=== PATIENT | female | born 1990 | race Caucasian/White ===

== ENCOUNTER 2020-06-19 08:00 | Outpatient (CLI) | payer OTHER ==
[2020-06-19 16:25] LABS: MUDS CUTOFF CONCENTRATIONS CUTOFF CONC BELOW:
[2020-06-19 16:29] LABS: BILIRUBIN,URINE NEGATIVE (NEGATIVE); GLUCOSE, URINE (UA) NEGATIVE (NEGATIVE); KETONES,URINE (UA) NEGATIVE (NEGATIVE); LEUKOCYTE ESTERASE, URINE NEGATIVE (NEGATIVE); NITRITE,URINE NEGATIVE (NEGATIVE); OCCULT BLOOD,URINE NEGATIVE (NEGATIVE); PROTEIN,URINE NEGATIVE (NEGATIVE); UROBILINOGEN,URINE 0.2 (NORMAL) E.U./dL (NORMAL)
[2020-06-19 16:42] LABS: BACTERIA,URINE Few /HPF (None Seen); CLARITY,URINE CLOUDY (CLEAR); RBC,URINE None Seen /HPF (0-5); SQUAMOUS EPITHELIAL CELL,UR FEW Squamous (<= Few)
[2020-06-19 17:07] LABS: AMPHETAMINE SCREEN,URINE NEGATIVE (NEGATIVE); BENZODIAZEPINES SCREEN, URINE NEGATIVE (NEGATIVE); COCAINE SCREEN URINE NEGATIVE (NEGATIVE); METHADONE SCREEN, URINE NEGATIVE (NEGATIVE); METHAMPHETAMINES SCREEN, URINE NEGATIVE (NEGATIVE); OPIATE SCREEN, URINE NEGATIVE (NEGATIVE); OXYCODONE SCREEN, URINE NEGATIVE (NEGATIVE); PROPOXYPHENE SCREEN, URINE NEGATIVE (NEGATIVE); TRICYCLIC ANTIDEPRESSANT,URINE NEGATIVE (NEGATIVE)
== END 2020-06-19 23:59 | disposition home or self-care (01) ==
LOC: LAB.R 08:00
PROVIDERS: ATTEND Advanced Practice Midwife
DX: Z34.90 Encounter for supervision of normal pregnancy, unspecified, unspecified trimester (principal)
CPT/HCPCS: 80306; 81001; 87086

== ENCOUNTER 2020-07-03 15:12 | Outpatient (CLI) | payer OTHER ==
--- NOTE | 2020-07-03 16:39 | Ultrasound Report ---
PROCEDURE: OB First Trimester INDICATIONS: SUPERV OF NL PREG OUTSIDE/PRIOR DATING DATA: Last menstrual period (LMP): 05/05/2020. LMP-based estimated date of delivery (GLORIA): 02/09/2021. First dating scan (date and location): 07/03/2020. Estimated date of delivery (GLORIA) from first dating scan: 02/06/2021. TECHNIQUE: Real-time scanning was performed of the fetus and maternal pelvic organs, with image documentation. COMPARISON: None FINDINGS: Embryo: Single live intrauterine is identified with crown-rump length measuring 2.2 cm cor responding to 8 weeks 6 days. heart rate is identified at 170 bpm. Measurement variability in dating: +/- 4 weeks by LMP, +/- 7 days by mean sac diameter (use before 6 weeks gestation if crown-rump length not able to be measured), +/- 5 days by crown-rump length (6-12 weeks gestation). Maternal organs: Ovaries demonstrate a right corpus luteal cyst measuring 25 x 17 x 20 mm.. IMPRESSION: 1. Single live intrauterine with ultrasound gestational age of 8 weeks 6 days as above. Reviewed by: Roseanna Cardenas MD on 07/03/2020 4:37 PM PST Approved by: Roseanna Cardenas MD on 07/03/2020 4:37 PM PST Station ID: [id number]
== END 2020-07-03 15:13 | disposition home or self-care (01) ==
LOC: DI 15:12
PROVIDERS: ATTEND Advanced Practice Midwife
DX: Z34.90 Encounter for supervision of normal pregnancy, unspecified, unspecified trimester (principal)

== ENCOUNTER 2020-07-19 07:00 | Outpatient (CLI) | payer OTHER ==
[2020-07-19 21:21] LABS: TRICHOMONAS VAGINALIS DNA NEGATIVE (NEGATIVE)
== END 2020-07-19 23:59 ==
LOC: LAB.R 07:00
PROVIDERS: ATTEND Nurse Practitioner Obstetrics & Gynecology
DX: Z11.3 Encounter for screening for infections with a predominantly sexual mode of transmission (principal)
CPT/HCPCS: 87491; 87591; 87661

== ENCOUNTER 2020-07-28 09:27 | Outpatient (CLI) | payer OTHER ==
[2020-07-28 12:08] LABS: BASOPHILS % (AUTO) 0.4 %; EOSINOPHILS # (AUTO) 0.3 10^3/uL (0.0-0.7); EOSINOPHILS % (AUTO) 3.7 %; HCT - HEMATOCRIT 35.7 % (37.0-47.0); HGB - HEMOGLOBIN 12.2 g/dL (12.0-16.0); LYMPHOCYTES # (AUTO) 2.6 10^3/uL (1.5-3.5); LYMPHOCYTES % (AUTO) 33.2 %; MEAN CORPUSCULAR HGB CONC 34.2 g/dL (32.0-36.0); MEAN CORPUSCULAR VOLUME 93.7 fL (81.0-99.0); MEAN PLATELET VOLUME 11.5 fL (7.9-10.8); MONOCYTES # (AUTO) 0.4 10^3/uL (0.0-1.0); MONOCYTES % (AUTO) 5.6 %; NEUTROPHILS # (AUTO) 4.4 10^3/uL (1.5-6.6); NEUTROPHILS % (AUTO) 56.8 %; PLT - PLATELET COUNT 214 10^3/uL (130-450); RED BLOOD COUNT 3.81 10^6/uL (4.20-5.40); RED CELL DISTRIBUTION WIDTH 12.5 % (12.0-15.0); WHITE BLOOD COUNT 7.8 x10^3/uL (4.8-10.8)
[2020-07-29 07:18] LABS: HIV AG/AB 4TH GEN NON-REACTIVE (NON-REACTIVE)
[2020-07-29 13:12] LABS: HEPATITIS C ANTIBODY NON-REACTIVE (NON-REACTIVE)
[2020-07-29 14:11] LABS: HEPATITIS B SURFACE ANTIGEN NON-REACTIVE (NON-REACTIVE)
[2020-08-02 14:32] LABS: CIGARETTE SMOKER? NOT GIVEN; DONOR AGE: EGG RETRIEVAL NOT GIVEN; DONOR EGG NO; HX OF NEURAL TUBE DEFECTS NO; INSULIN DEPEND DIABETIC NO; MATERNAL WEIGHT 170 lbs; NUMBER OF FETUSES 1; PREV PREGNANCY DOWN SYND NO
== END 2020-07-28 23:59 | disposition home or self-care (01) ==
LOC: LAB.WCP 09:27
PROVIDERS: ATTEND Nurse Practitioner Obstetrics & Gynecology
DX: Z36.89 Encounter for other specified antenatal screening (principal); Z36.8A Encounter for antenatal screening for other genetic defects
CPT/HCPCS: 36415; 81599; 85025; 86592; 86762; 86787; 86803; 86850; 86900; 86901; 87340; 87389

== ENCOUNTER 2020-08-21 08:00 | Outpatient (CLI) | payer OTHER | END 2020-08-21 23:59 | disposition home or self-care (01) | LOC: LAB.WCP 08:00 | PROVIDERS: ATTEND Advanced Practice Midwife | DX: Z36.8A Encounter for antenatal screening for other genetic defects (principal) | CPT/HCPCS: 36415; 82105; 82677; 84163; 84702; 86336 ==

== ENCOUNTER 2020-09-25 14:59 | Outpatient (CLI) | payer OTHER ==
--- NOTE | 2020-09-26 10:39 | Ultrasound Report ---
PROCEDURE: OB Detailed Eval INDICATIONS: SUPERVISION OF OUTSIDE/PRIOR DATING DATA: Last menstrual period (LMP): 05/05/2020. LMP-based estimated date of delivery (GLORIA): 02/09/2021. First dating scan (date and location): 07/03/2020. Estimated date of delivery (GLORIA) from first dating scan: 02/06/2021. Providers states GLORIA 02/09/2021 TECHNIQUE: Real-time scanning was performed of the fetus, with image documentation and biometric measurements. Endovaginal scanning: Not needed COMPARISON: Prior OB ultrasound 07/03/2020 FINDINGS: General: A single living intrauterine gestation is present. Presentation: Variable at this time Placenta: Placental position is posterior, without previa. Amniotic fluid index: 18.9 cm, 86% for gestational age. heart rate: 144 beats per minute. Maternal cervical canal: 4.3 cm long; normal length is 2.5 cm or more. biometrics: Biparietal diameter: 5.0 cm, 21 weeks 0 days Head circumference: 18.7 cm, 21 weeks 0 days Abdominal circumference: 15.7 cm, 20 weeks 6 days Femur length: 3.5 cm, 20 weeks 6 days Estimated gestational age from initial scan: 20 weeks 3 days. Composite gestational age from present scan: 21 weeks 0 days Estimated weight and percentile: 383 g, 70th percentile Measurement variability in biometric dating: +/- 10 days from 12-20 weeks gestation, +/- 2 weeks from 20-30 weeks gestation, +/- 3 weeks at 30 weeks gestation or later. Anatomic survey: Neuro: Ventricles are normal at less than 10 mm. Cisterna magna is normal at 3-11 mm. Cerebellum i s normal in size and morphology. Nuchal skin fold: Normal at less than 6 mm between 14 and 20 weeks gestational age. Face: Nose and lips, facial profile are normal. Spine: No evidence for spina bifida. Heart: 4-chambered heart is present, with normal ventricular outflow tracts. Diaphragm: Diaphragm is intact. Stomach: Left-sided stomach is present. Kidneys: Slight hydronephrosis with the right renal pelvis measuring 5 mm. Normal is less than 5 mm in 2nd trimester, less than 7 mm in 3rd trimester. Cord: 3 vessel cord has orthotopic insertion. Bladder: Normal in size. Extremities: All 4 extremities are visualized. IMPRESSION: Appropriate interval growth, normal amniotic fluid volume, note is made that the left renal pelvis is slightly above the upper limits of normal at this stage of development. Third trimester renal ultras ound is recommended as a targeted evaluation, versus obtaining renal ultrasound at least 10 days after delivery. Reviewed by: Pro Aguilar MD on 09/26/2020 10:38 AM PDT Approved by: Pro Aguilar MD on 09/26/2020 10:38 AM PDT Station ID: [id number]
== END 2020-09-25 15:00 | disposition home or self-care (01) ==
LOC: DI 14:59
PROVIDERS: ATTEND Advanced Practice Midwife
DX: Z34.90 Encounter for supervision of normal pregnancy, unspecified, unspecified trimester (principal); Z36.89 Encounter for other specified antenatal screening

== ENCOUNTER 2020-11-03 10:42 | Outpatient (CLI) | payer OTHER ==
[2020-11-03 11:46] LABS: HCT - HEMATOCRIT 33.9 % (37.0-47.0); HGB - HEMOGLOBIN 11.9 g/dL (12.0-16.0); MEAN CORPUSCULAR HGB CONC 35.1 g/dL (32.0-36.0); MEAN CORPUSCULAR VOLUME 96.9 fL (81.0-99.0); RED BLOOD COUNT 3.5 10^6/uL (4.20-5.40); RED CELL DISTRIBUTION WIDTH 12.8 % (12.0-15.0); WHITE BLOOD COUNT 11.5 x10^3/uL (4.8-10.8)
== END 2020-11-03 10:43 | disposition home or self-care (01) ==
LOC: LAB 10:42
PROVIDERS: ATTEND Nurse Practitioner Obstetrics & Gynecology
DX: Z34.90 Encounter for supervision of normal pregnancy, unspecified, unspecified trimester (principal); Z36.8A Encounter for antenatal screening for other genetic defects
CPT/HCPCS: 36415; 82950; 85027

== ENCOUNTER 2020-11-13 15:51 | Outpatient (CLI) | payer OTHER ==
--- NOTE | 2020-11-13 20:54 | Ultrasound Report ---
PROCEDURE: OB F/U or Repeat INDICATIONS: UTERINE SIZE - DATE DISCREPANCY OUTSIDE/PRIOR DATING DATA: Last menstrual period (LMP): 05/05/2020. LMP-based estimated date of delivery (GLOIRA): 02/09/2021. First dating scan (date and location): To 821. Estimated date of delivery (GLORIA) from first dating scan: 02/06/2021. The below data below was generated using the providers stated GLORIA of 02/09/2021 TECHNIQUE: Real-time scanning was performed of the fetus, with image documentation and biometric measurements. COMPARISON: 07/03/2020 and 09/25/2020. FINDINGS: General: A single living intrauterine gestation is present. Presentation: Vertex Placenta: Placental position is posterior, without previa. Amniotic fluid index: 16.6 cm, normal for gestational age. Largest pocket measures 4.75 cm. heart rate: 152 beats per minute. Maternal cervical canal: 5.7 cm long; normal length is 2.5 cm or more. biometrics: Biparietal diameter: 7.3 cm, 29 weeks, 2 days Head circumference: 27.5 cm, 30 weeks, 0 day Abdominal circumference: 24.5 cm, 28 weeks, 6 days Femur length: 5.7 cm, 29 weeks, 6 days Estimated gestational age from initial scan: 27 weeks, 3 days Composite gestational age from present scan: 29 weeks, 4 days Estimated weight and percentile: 1368.9 g, 96% Measurement variability in biometric dating: +/- 10 days from 12-20 weeks gestation, +/- 2 weeks from 20-30 weeks gestation, +/- 3 weeks at 30 weeks gestation or more. Other: chest, bilateral kidneys, stomach, and urinary bladder are visualized and are within nor mal limits. Previously described echogenic debris within stomach lumen is not seen on the current halle dy. IMPRESSION: 1. Single live intrauterine with fetus in tacks presentation. heart rate is 152 bpm. 2. Normal amount of amniotic fluid with ANEL measures 16.6 cm and largest pocket measures 4.75 cm in s ize. 3. Estimated weight is at 96 percentile. Reviewed by: Miky Zhu MD on 11/13/2020 8:53 PM PDT Approved by: Miky Zhu MD on 11/13/2020 8:53 PM PDT Station ID: [id number]
== END 2020-11-13 15:52 | disposition home or self-care (01) ==
LOC: DI 15:51
PROVIDERS: ATTEND Nurse Practitioner Obstetrics & Gynecology
DX: O26.842 Uterine size-date discrepancy, second trimester (principal); Z3A.27 27 weeks gestation of pregnancy

== ENCOUNTER 2020-12-18 07:22 | Outpatient (CLI) | payer OTHER ==
--- NOTE | 2020-12-18 10:29 | Ultrasound Report ---
PROCEDURE: OB F/U or Repeat INDICATIONS: SUPERVISION OF NORMAL OUTSIDE/PRIOR DATING DATA: Last menstrual period (LMP): 05/05/2020. LMP-based estimated date of delivery (GLORIA): 02/09/2021. First dating scan (date and location): 07/03/2020. Estimated date of delivery (GLORIA) from first dating scan: 02/06/2021. The below data below was generated using the provider stated GLORIA of 02/09/2021 TECHNIQUE: Real-time scanning was performed of the fetus, with image documentation and biometric measurements. Endovaginal scanning: Not performed COMPARISON: 11/13/2020 FINDINGS: General: A single living intrauterine gestation is present. Presentation: Cephalic Placenta: Placental position is posterior, without previa. Amniotic fluid index: 12.7 cm, normal for gestational age. Largest pocket is 4.2 cm heart rate: 137 beats per minute. Maternal cervical canal: 4.2 cm long; normal length is 2.5 cm or more. biometrics: Biparietal diameter: 8.2 cm, 33 weeks, 0 days Head circumference: 30.0 cm, 33 weeks, 2 days Abdominal circumference: 31.1 cm, 35 weeks, 1 day Femur length: 6.3 cm, 32 weeks, 5 days Estimated gestational age from initial scan: 32 weeks, 3 days. Composite gestational age from present scan: 33 weeks, 4 days Estimated weight and percentile: 2338 g, 87th percentile Measurement variability in biometric dating: +/- 10 days from 12-20 weeks gestation, +/- 2 weeks from 20-30 weeks gestation, +/- 3 weeks at 30 weeks gestation or more. Other: Filled urinary bladder. No hydronephrosis.. IMPRESSION: 1. Single live intrauterine with appropriate growth since the prior study. 2. No hydronephrosis. 3. Estimated weight at the 87th percentile. Reviewed by: Cori Orozco MD on 12/18/2020 10:27 AM PDT Approved by: Cori Orozco MD on 12/18/2020 10:27 AM PDT Station ID: [id number]
== END 2020-12-18 07:23 | disposition home or self-care (01) ==
LOC: DI 07:22
PROVIDERS: ATTEND Advanced Practice Midwife
DX: Z34.93 Encounter for supervision of normal pregnancy, unspecified, third trimester (principal)

== ENCOUNTER 2021-01-18 08:00 | Outpatient (CLI) | payer OTHER | END 2021-01-18 23:59 | disposition home or self-care (01) | LOC: LAB.N 08:00 | PROVIDERS: ATTEND Advanced Practice Midwife | DX: Z36.85 Encounter for antenatal screening for Streptococcus B (principal) | CPT/HCPCS: 87797 ==

== ENCOUNTER 2021-02-07 16:32 | Outpatient (CLI) | payer OTHER ==
[2021-02-07 16:44] LABS: HCT - HEMATOCRIT 35.9 % (37.0-47.0); HGB - HEMOGLOBIN 11.8 g/dL (12.0-16.0); MEAN CORPUSCULAR HEMOGLOBIN 30.5 pg (27.0-31.0); MEAN CORPUSCULAR HGB CONC 32.9 g/dL (32.0-36.0); MEAN CORPUSCULAR VOLUME 92.8 fL (81.0-99.0); MEAN PLATELET VOLUME 10.8 fL (7.9-10.8); RED BLOOD COUNT 3.87 10^6/uL (4.20-5.40); RED CELL DISTRIBUTION WIDTH 13.2 % (12.0-15.0); WHITE BLOOD COUNT 10.9 x10^3/uL (4.8-10.8)
[2021-02-07 16:57] LABS: ALBUMIN/GLOBULIN RATIO 0.8 (1.0-2.2); BILIRUBIN,TOTAL 0.3 mg/dL (0.2-1.0); CALCIUM 8.6 mg/dL (8.5-10.3); CREATININE 0.7 mg/dL (0.4-1.0); POTASSIUM 3.4 mmol/L (3.5-5.0); TOTAL PROTEIN 6.6 g/dL (6.7-8.2)
[2021-02-07 17:00] LABS: CREATININE,URINE 98.7 mg/dL; PROTEIN/CREATININE RATIO,URINE 0.1 (<=0.2)
== END 2021-02-07 16:33 | disposition home or self-care (01) ==
LOC: LAB 16:32
PROVIDERS: ATTEND Nurse Practitioner Obstetrics & Gynecology
DX: R03.0 Elevated blood-pressure reading, without diagnosis of hypertension (principal)
CPT/HCPCS: 36415; 80053; 82570; 84156; 85027

== ENCOUNTER 2021-02-08 09:14 | Outpatient (CLI) | payer OTHER ==
[2021-02-08 09:40] LABS: HCT - HEMATOCRIT 35.3 % (37.0-47.0); HGB - HEMOGLOBIN 11.8 g/dL (12.0-16.0); MEAN CORPUSCULAR HGB CONC 33.4 g/dL (32.0-36.0); MEAN CORPUSCULAR VOLUME 92.7 fL (81.0-99.0); RED BLOOD COUNT 3.81 10^6/uL (4.20-5.40); RED CELL DISTRIBUTION WIDTH 13.3 % (12.0-15.0); WHITE BLOOD COUNT 10.8 x10^3/uL (4.8-10.8)
[2021-02-08 09:49] LABS: PROTEIN/CREATININE RATIO,URINE 0.1 (<=0.2)
[2021-02-08 09:50] LABS: ALBUMIN/GLOBULIN RATIO 0.8 (1.0-2.2); BILIRUBIN,TOTAL 0.3 mg/dL (0.2-1.0); CALCIUM 8.9 mg/dL (8.5-10.3); CREATININE 0.6 mg/dL (0.4-1.0); POTASSIUM 3.8 mmol/L (3.5-5.0); TOTAL PROTEIN 6.6 g/dL (6.7-8.2)
--- NOTE | 2021-02-08 09:55 | PROVIDER PROGRESS NOTE ---
- HPI Chief Complaint: Hypertension/PIH Current : Vital Signs Temperature 36.8 C 02/08/21 09:30 Heart Rate 87 02/08/21 09:30 Respiratory Rate 18 02/08/21 09:30 Blood Pressure 137/83 H 02/08/21 09:30 O2 Saturation 100 02/08/21 09:30 Temperature 36.8 C 02/08/21 09:30 Heart Rate 87 02/08/21 09:30 Respiratory Rate 18 02/08/21 09:30 Blood Pressure 137/83 H 02/08/21 09:30 O2 Saturation 100 02/08/21 09:30 - Procedures OB Procedure Performed: NST Diagnosis/Indication for NST: Gestational Hypertension - Plan Plan: Pt evaluated face to face Neha is a 30yo @ 39.6wks gestation who presents to [facility] following elevated BP in the clinic at her blood pressure check this morning. She denies LAINEZ, visual disturbances, RUQ or epigastric pain. She reports +FM. She denies vaginal bleeding, leakage of fluid or contractions at this time. NST performed 02/08/2021 NST read 02/08/2021 NST reactive. FHR baseline 130, moderate variability, + accels, no decels No contractions appreciate via tocometry BP in the office 152/90. BP on FBP 130s/80s. [facility] labs WNL: PLT 212 Hgb 11.8/Hct 35.3 AST 31/ALT 22 Creatinine 0.6 Pro/crea ratio 0.1 Assessment: 30yo @ 39.6wks gestation Gestational hypertension FHR Category I Plan: Reviewed warning signs and symptoms of preeclampsia extensively with patient and partner today. Secondary to staffing concerns the pt was discharged home with precautions and will plan to return for medical induction of labor tomorrow evening at 2000 or sooner if needed. She has the emergency contact number. Pt and partner verbalized understanding and agree to above plan. They deny further questions or concerns at this time. FINAL DIAGNOSIS: Gestational hypertension
[2021-02-08 10:29] VITALS: BP 135/88
== END 2021-02-08 10:05 | disposition home or self-care (01) ==
LOC: WFO 09:14 → FBP 09:19 → WFO 10:05
PROVIDERS: ATTEND Nurse Practitioner Obstetrics & Gynecology
DX: O13.3 Gestational [pregnancy-induced] hypertension without significant proteinuria, third trimester (principal); Z3A.39 39 weeks gestation of pregnancy
CPT/HCPCS: 36415; 59025; 80053; 82570; 84156; 85027; 99213; 99214

== ENCOUNTER 2021-02-09 09:21 | Outpatient (CLI) | payer OTHER ==
[2021-02-09 09:39] VITALS: BP 139/78
[2021-02-09 10:46] LABS: RUPTURE OF MEMBRANES PLUS NEGATIVE (NEGATIVE)
--- NOTE | 2021-02-09 12:42 | PROVIDER PROGRESS NOTE ---
- HPI Chief Complaint: Leakage of vaginal fluid Current : Current EDU 02/09/21 Gestation 40 Weeks and 0 Days 1 Para 0 Vital Signs Temperature 37.2 C 02/09/21 09:38 Heart Rate 102 H 02/09/21 09:38 Respiratory Rate 16 02/09/21 09:38 Blood Pressure 139/78 H 02/09/21 09:38 O2 Saturation 99 02/09/21 09:38 Temperature 37.2 C 02/09/21 09:38 Heart Rate 102 H 02/09/21 09:38 Respiratory Rate 16 02/09/21 09:38 Blood Pressure 139/78 H 02/09/21 09:38 O2 Saturation 99 02/09/21 09:38 - Procedures OB Procedure Performed: NST Diagnosis/Indication for NST: Gestational Hypertension NST Procedure: NST Procedure Start Date 02/09/21 Start Time 10:29 Stop Time 10:50 Vibroacoustic Stimulation Used No Patient States Movement Yes - Plan Plan: S: Neha presents to [facility] with c/o vaginal leakage of fluid which has now resolved but she wants to ensure her water has not broken. She denies vaginal bleeding. Reports intermittent contractions throughout the night and in to the morning last night which are manageable. Pt talking through contractions now. She denies intercourse in the past 24hrs. She denies LAINEZ, visual disturbances, RUQ or epigastric pain. O: BP normotensive. NST performed 02/09/2021 NST read 02/09/2021 NST reactive. FHR baseline 130s, moderate variability, + accels no decels. Contractions palpate mild intermittently with soft resting tone. Pt talks easily through contractions. Nitirizine negative ROM plugs - NEG A: 30yo @ 40.0wks gestation Vaginal leakage of fluid FHR Category I P: Pt released home with precautions. She is scheduled to return for induction of labor tonight at 1999. Pt verbalized understanding and agrees to above plan. She denies further questions or concerns at this time. FINAL DIAGNOSIS: Vaginal leakage of fluid
== END 2021-02-09 11:00 | disposition home or self-care (01) ==
LOC: WFO 09:21 → FBP 09:22 → WFO 11:00
PROVIDERS: ATTEND Nurse Practitioner Obstetrics & Gynecology
DX: O99.891 Other specified diseases and conditions complicating pregnancy (principal); N89.8 Other specified noninflammatory disorders of vagina; Z3A.40 40 weeks gestation of pregnancy
CPT/HCPCS: 84112; 99214